=== PATIENT | female | born 1935 | race Caucasian/White ===

== ENCOUNTER → 2018-01-15 | Outpatient (CLI) | payer MEDICARE, OTHER ==
[~2018-01-15] MED LIST: ASA81 MG PO; CHOLESTEROL; FLAGYL500 MG PO; IOPAMIDOL 370 MG/ML 200 ML INFUS..BTL INJ ONE; LEVAQUIN500 MG PO; LOVASTATIN20 MG PO; SODIUM CHLORIDE 0.9% 100 ML 100 ML ONE; SYMBICORT 80-10.2 GM INH; VICODIN 5-5001 EACH PO; Z.0.SYNTHROID25 MCG PO
[2018-01-15 15:34] LABS: BASOPHILS # (AUTO) 0.1 (0.0-0.1); BASOPHILS % 0.6 % (0.0-1.0); EOSINOPHILS # (AUTO) 0.1 (0.0-0.4); EOSINOPHILS % 0.6 % (0.0-6.0); HEMATOCRIT 42.5 % (34.2-44.1); HEMOGLOBIN 14.4 g/dL (12.0-16.0); LYMPHOCYTES # (AUTO) 2.6 (1.0-3.2); LYMPHOCYTES % 28.8 % (18.0-39.1); MEAN CORPUSCULAR HEMOGLOBIN 31.9 pg (28-32); MEAN CORPUSCULAR HGB CONC 33.9 g/dL (31-35); MONOCYTES # (AUTO) 0.7 (0.2-0.8); MONOCYTES % 8.1 % (4.4-11.3); NEUTROPHILS # (AUTO) 5.4 (2.1-6.9); PLATELET COUNT 278 x10e3/uL (140-360); RED BLOOD COUNT 4.52 x10e6/uL (3.6-5.1); RED CELL DISTRIBUTION WIDTH 13.3 % (11.7-14.4)
[2018-01-15 15:58] LABS: ALANINE AMINOTRANSFERASE 14 IU/L (0-55); ALBUMIN 3.8 g/dL (3.5-5.0); ALBUMIN/GLOBULIN RATIO 1.3 (0.8-2.0); ALKALINE PHOSPHATASE 49 IU/L (40-150); BLOOD UREA NITROGEN 14 mg/dL (7-26); BUN/CREATININE RATIO 16 (6-25); CALCIUM 8.9 mg/dL (8.4-10.2); CARBON DIOXIDE 26 mmol/L (22-29); CHLORIDE 105 mmol/L (98-107); CHOL/HDL RATIO 3.2 (3.0-3.6); CHOLESTEROL 168 MD/DL (0-199); CREATININE, SERUM 0.86 mg/dL (0.57-1.11); EST GLOMERULAR FILTRATION RATE > 60 ML/MIN (60-); GLUCOSE 96 mg/dL (74-118); HDL CHOLESTEROL 53 MG/DL (40-60); LDL CHOLESTEROL 86 MG/DL (60-130); SODIUM 140 mmol/L (136-145); TRIGLYCERIDES 145 MG/DL (0-149)
--- NOTE | 2018-01-16 09:58 | Diagnostic Imaging Report ---
PROCEDURE:CTA ABD/PELVIS WITH CONTRAST COMPARISON:[facility], CT, CTA ABD/PEL W, 08/07/2015, 11:11. INDICATIONS:ABDOMINAL AORTIC ANUERYSM TECHNIQUE: Multi-detector CT technology with Dose Reduction was employed. Images were obtained after the administration of 100 cc of Isovue-370 intravenously. For optimization of anatomic evaluation, multiplanar and volume rendering reconstructions were performed. Advanced 3-D off-line postprocessing were performed on a dedicated stand-alone workstation under the direct supervision of the interpreting physician. DLP: 343.02 mGy-cm FINDINGS: Aortic Measurements at the level of the: Diaphragmatic hiatus: 2.98 cm Celiac axis: 3.08 cm Superior Mesenteric Artery: 2.44 cm Renal Arteries: 2.03 cm Above the iliac bifurcation: 2.23 cm No change in the degree of mural thrombus within the lower thoracic and upper abdominal aorta. Fusiform infrarenal aneurysm has a maximal dimension of 4.5 cm (compared to 4.2 cm previously). Evidence of some degree of dissection involving the distal aspect of the aneurysm is noted with two adjacent levels of linear calcification. This is new compared to the prior study. The right common iliac artery measures 1.23 cm. Left common iliac artery measures 0.92 cm. The right common femoral artery measures 0.81 cm and the left common femoral artery measures 0.87 cm. The celiac, superior mesenteric, inferior mesenteric and renal arteries are patent with minimal atherosclerotic disease, without significant narrowing. Abdominal and Pelvic soft-tissues and organs: Lung bases: Unchanged mild emphysematous findings. Liver: Unchanged Biliary: Status post cholecystectomy Spleen: Unremarkable Pancreas: No mass Adrenal Glands: Unchanged left adrenal nodule Kidneys: Unchanged GI: Diverticulosis Peritoneum/Retroperitoneum: No adenopathy or fluid Reproductive organs: Absent uterus and adnexal structures Musculoskeletal: Degenerative changes of the spine with disc space narrowing at L2-L3 and L5-S1. CONCLUSION: 1. Slight interval enlargement of the infrarenal abdominal aortic aneurysm now with a maximal measurement of 4.5 cm. 2. 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 3. Unchanged appearance of a left adrenal nodule. David Romeo D.O. Dictated by: David Romeo D.O. on 01/16/2018 at 10:06 Electronically approved by: David Romeo D.O. on 01/16/2018 at 10:06
== END ==
LOC: CT 14:47
PROVIDERS: ATTEND Internal Medicine Cardiovascular Disease
DX: I71.4 Abdominal aortic aneurysm, without rupture (principal)
CPT/HCPCS: 36415; 74174; 80053; 80061; 85025; Q9967

== ENCOUNTER 2020-07-20 18:52 | Inpatient (IN) | payer MEDICARE, OTHER ==
[~2020-07-20] VITALS: Ht 167.6 cm; Wt 53.5 kg
[~2020-07-20 18:52] MED LIST changes: -IOPAMIDOL 370 MG/ML 200 ML INFUS..BTL INJ ONE; -SODIUM CHLORIDE 0.9% 100 ML 100 ML ONE
[2020-07-20 20:11] LABS: BASOPHILS # (AUTO) 0.1 (0.0-0.1); BASOPHILS % 0.3 % (0.0-1.0); EOSINOPHILS # (AUTO) 0.1 (0.0-0.4); EOSINOPHILS % 0.3 % (0.0-6.0); HEMATOCRIT 41.7 % (34.2-44.1); HEMOGLOBIN 13.3 g/dL (12.0-16.0); LYMPHOCYTES # (AUTO) 1.5 (1.0-3.2); LYMPHOCYTES % 5.5 % (18.0-39.1); MEAN CORPUSCULAR HEMOGLOBIN 30.2 pg (28-32); MEAN CORPUSCULAR HGB CONC 31.9 g/dL (31-35); MEAN CORPUSCULAR VOLUME 94.8 fL (81-99); MONOCYTES # (AUTO) 1.8 (0.2-0.8); MONOCYTES % 6.6 % (4.4-11.3); NEUTROPHILS # (AUTO) 23.7 (2.1-6.9); NEUTROPHILS % 86.4 % (38.7-80.0); PLATELET COUNT 263 x10e3/uL (140-360); RED CELL DISTRIBUTION WIDTH 14.2 % (11.7-14.4)
[2020-07-20] MEDS ORDERED: DEXTROSE 5% IV STA (20:17)
[2020-07-20] MEDS ORDERED: VANCOMYCIN 1GM/NS 250 ML 250 ML IV STA (20:17)
[2020-07-20] MEDS ORDERED: CEFEPIME IV STA (20:17)
[2020-07-20] MEDS ORDERED: SODIUM CHLORIDE IV STA (20:17)
[2020-07-20 20:29] LABS: ALANINE AMINOTRANSFERASE 17 IU/L (0-55); ALBUMIN 3.2 g/dL (3.5-5.0); ALBUMIN/GLOBULIN RATIO 0.9 (0.8-2.0); ALKALINE PHOSPHATASE 59 IU/L (40-150); ANION GAP 15.2 mmol/L (8-16); BLOOD UREA NITROGEN 23 mg/dL (7-26); BUN/CREATININE RATIO 26 (6-25); CALCIUM 9.5 mg/dL (8.4-10.2); CARBON DIOXIDE 29 mmol/L (22-29); CHLORIDE 101 mmol/L (98-107); CREATINE KINASE 24 IU/L (29-168); CREATININE, SERUM 0.87 mg/dL (0.57-1.11); EST GLOMERULAR FILTRATION RATE > 60 ML/MIN (60-); GLUCOSE 126 mg/dL (74-118); POTASSIUM 4.2 mmol/L (3.5-5.1); SODIUM 141 mmol/L (136-145)
[2020-07-20] MEDS ORDERED: SODIUM CHLORIDE 0.9% 50ML 50 ML ONE (21:13)
[2020-07-20] MEDS ORDERED: CEFTRIAXONE SOD 1 GM VIAL ONE (21:13)
[2020-07-20] MEDS ORDERED: HYDROCODONE/APAP 5MG-325MG TAB PO ONE (21:30)
[2020-07-20] MEDS ORDERED: VANCOMYCIN HCL 1GM/NS 250 ML BAG IV SCH (22:30)
[2020-07-20] MEDS ORDERED: CEFTRIAXONE SOD 1 GM/50 ML BAG IV SCH (22:30)
[2020-07-21] MEDS: CEFTRIAXONE SOD 1 GM in SODIUM CHLORIDE 0.9% 50ML 50 ML IV SCH ×2 (02:01→23:37)
[2020-07-21] MEDS: VANCOMYCIN 1GM/NS 250 ML 250 ML IV SCH ×2 (02:01→23:53)
[2020-07-21] MEDS ORDERED: SODIUM CHLORIDE 0.9% 1000ML 1,000 ML IV ONE (05:00)
[2020-07-21 05:41] LABS: BASOPHILS # (AUTO) 0.1 (0.0-0.1); BASOPHILS % 0.3 % (0.0-1.0); EOSINOPHILS # (AUTO) 0.1 (0.0-0.4); EOSINOPHILS % 0.4 % (0.0-6.0); HEMATOCRIT 36.2 % (34.2-44.1); HEMOGLOBIN 11.6 g/dL (12.0-16.0); LYMPHOCYTES # (AUTO) 1.6 (1.0-3.2); LYMPHOCYTES % 8.3 % (18.0-39.1); MEAN CORPUSCULAR HEMOGLOBIN 30.8 pg (28-32); MONOCYTES # (AUTO) 1.2 (0.2-0.8); MONOCYTES % 6.3 % (4.4-11.3); NEUTROPHILS # (AUTO) 16.4 (2.1-6.9); PLATELET COUNT 190 x10e3/uL (140-360); RED BLOOD COUNT 3.77 x10e6/uL (3.6-5.1); RED CELL DISTRIBUTION WIDTH 14.1 % (11.7-14.4)
[2020-07-21] MEDS: ALBUTEROL/IPRATROPIUM 3 ML NEB NEB SCH ×5 (05:50→22:30)
[2020-07-21 06:14] LABS: ALANINE AMINOTRANSFERASE 16 IU/L (0-55); ALBUMIN 2.6 g/dL (3.5-5.0); ALBUMIN/GLOBULIN RATIO 0.8 (0.8-2.0); ALKALINE PHOSPHATASE 54 IU/L (40-150); ANION GAP 10.5 mmol/L (8-16); BLOOD UREA NITROGEN 23 mg/dL (7-26); BUN/CREATININE RATIO 32 (6-25); CALCIUM 8.8 mg/dL (8.4-10.2); CARBON DIOXIDE 32 mmol/L (22-29); CHLORIDE 104 mmol/L (98-107); CREATININE, SERUM 0.73 mg/dL (0.57-1.11); EST GLOMERULAR FILTRATION RATE > 60 ML/MIN (60-); GLUCOSE 95 mg/dL (74-118); POTASSIUM 4.5 mmol/L (3.5-5.1); SODIUM 142 mmol/L (136-145)
[2020-07-21 06:20] LABS: CREATINE KINASE 35 IU/L (29-168)
[2020-07-21 13:55] VITALS: BP 101/61
[2020-07-21 13:59] VITALS: BP 113/76
[2020-07-21] MEDS ORDERED: HYDRALAZINE HCL 20 MG/ML VIAL IV PRN (14:30)
[2020-07-21] MEDS ORDERED: ACETAMINOPHEN 325 MG TAB PO PRN (14:30)
[2020-07-21] MEDS ORDERED: POLYETHYLENE GLYCOL 3350 17 GM PACK PO PRN (14:30)
[2020-07-21] MEDS ORDERED: ONDANSETRON HCL INJ 2MG/ML 2ML 2 MG/ML VIAL IV PRN (14:30)
[2020-07-21] MEDS ORDERED: SODIUM CHLORIDE 0.9% 50ML 50 ML ONE ×2 (15:29→23:41)
[2020-07-21] MEDS ORDERED: IOPAMIDOL 370 MG/ML 200 ML INFUS..BTL INJ ONE (15:29)
[2020-07-21] MEDS ORDERED: NEURONTIN300 MG PO (15:39)
[2020-07-21 15:40] LABS: CREATINE KINASE MB 0.9 ng/mL (0-5.0)
[2020-07-21] MEDS ORDERED: MULTI-VITAMIN1 EACH PO (15:40)
[2020-07-21] MEDS ORDERED: TYLENOL EXTRA500 MG PO (15:41)
[2020-07-21 15:43] VITALS: BP 101/61
[2020-07-21] MEDS ORDERED: ALBUTEROL1.25 MG/3 NEB (15:43)
[2020-07-21] MEDS: DOCUSATE SODIUM 100 MG CAP PO SCH (16:25)
[2020-07-21] MEDS ORDERED: SYMBICORT 16010.2 GM INH (16:59)
[2020-07-21] MEDS: GABAPENTIN 300 MG CAP PO SCH (17:39)
[2020-07-21 17:52] LABS: CLARITY,URINE SL CLOUDY (CLEAR); COLOR,URINE YELLOW (YELLOW); KETONES,URINE NEGATIVE (NEGATIVE); LEUKOCYTE ESTERASE ,URINE TRACE (NEGATIVE); NITRITE,URINE NEGATIVE (NEGATIVE); PROTEIN,URINE DIPSTICK NEGATIVE (NEGATIVE); URINE UROBILINOGEN 0.2 mg/dL (0.2 - 1)
[2020-07-21 18:05] LABS: BACTERIA,URINE RARE /HPF; EPITHELIAL CELLS,URINE FEW /LPF; RBC,URINE 0-5 /HPF (0-5)
[2020-07-21] MEDS: BUDESONIDE/FORMOTEROL FUMARATE 80/4.5MCG 6.9 GM INH AEROSOL IH SCH (18:40)
[2020-07-21 20:18] VITALS: BP 95/70
[2020-07-21 20:24] LABS: CREATINE KINASE MB 0.9 ng/mL (0-5.0)
[2020-07-21 21:00] VITALS: BP 95/70
[2020-07-21] MEDS ORDERED: SIMVASTATIN 20 MG TAB PO SCH (21:00)
[2020-07-21] MEDS ORDERED: NON-FORMULARY MEDICATION (Lovastatin 20 MG) PO SCH (21:00)
[2020-07-21] MEDS ORDERED: ASPIRIN 81 MG ENTERIC COATED PO SCH (21:00)
[2020-07-21] MEDS ORDERED: TEMAZEPAM 7.5 MG CAP PO PRN (21:00)
[2020-07-22] MEDS: ALBUTEROL/IPRATROPIUM 3 ML NEB NEB SCH ×3 (02:05→11:25)
[2020-07-22 04:33] VITALS: BP 95/54
[2020-07-22 04:51] LABS: BASOPHILS % 0.2 % (0.0-1.0); EOSINOPHILS # (AUTO) 0.1 (0.0-0.4); EOSINOPHILS % 0.7 % (0.0-6.0); HEMATOCRIT 31.6 % (34.2-44.1); HEMOGLOBIN 10.2 g/dL (12.0-16.0); LYMPHOCYTES # (AUTO) 1.3 (1.0-3.2); LYMPHOCYTES % 15.7 % (18.0-39.1); MEAN CORPUSCULAR HEMOGLOBIN 30.9 pg (28-32); MEAN CORPUSCULAR HGB CONC 32.3 g/dL (31-35); MEAN CORPUSCULAR VOLUME 95.8 fL (81-99); MONOCYTES # (AUTO) 0.7 (0.2-0.8); MONOCYTES % 7.9 % (4.4-11.3); NEUTROPHILS # (AUTO) 6.3 (2.1-6.9); NEUTROPHILS % 74.9 % (38.7-80.0); PLATELET COUNT 203 x10e3/uL (140-360); RED CELL DISTRIBUTION WIDTH 13.8 % (11.7-14.4)
[2020-07-22 05:17] LABS: ANION GAP 10.6 mmol/L (8-16); BLOOD UREA NITROGEN 17 mg/dL (7-26); BUN/CREATININE RATIO 24 (6-25); CALCIUM 8.2 mg/dL (8.4-10.2); CARBON DIOXIDE 30 mmol/L (22-29); CHLORIDE 105 mmol/L (98-107); EST GLOMERULAR FILTRATION RATE > 60 ML/MIN (60-); GLUCOSE 82 mg/dL (74-118); MAGNESIUM 1.7 MG/DL (1.3-2.1); PHOSPHORUS 2.5 MG/DL (2.3-4.7); POTASSIUM 3.6 mmol/L (3.5-5.1); SODIUM 142 mmol/L (136-145)
[2020-07-22 05:41] LABS: THYROID STIMULATING HORMONE 3.871 uIU/mL (0.350-4.940)
[2020-07-22] MEDS ORDERED: LEVOTHYROXINE SODIUM 88 MCG TAB PO SCH (06:00)
[2020-07-22 07:10] VITALS: BP 95/62
[2020-07-22 07:30] VITALS: BP 95/62
[2020-07-22] MEDS: BUDESONIDE/FORMOTEROL FUMARATE 80/4.5MCG 6.9 GM INH AEROSOL IH SCH (07:50)
[2020-07-22] MEDS: GABAPENTIN 300 MG CAP PO SCH (08:12)
[2020-07-22] MEDS: DOCUSATE SODIUM 100 MG CAP PO SCH (08:12)
[2020-07-22] MEDS ORDERED: MULTIVITAMINS/MINERALS TAB PO SCH (09:00)
[2020-07-22] MEDS ORDERED: FAMOTIDINE 20 MG TAB PO SCH (09:00)
[2020-07-22] MEDS ORDERED: CEFDINIR300 MG PO (09:49)
[2020-07-22] MEDS ORDERED: ZITHROMAX500 MG PO (09:49)
[2020-07-22] MEDS ORDERED: ONDANSETRON HCL 4 MG ORAL DISINTEGRATING TAB PO PRN (10:30)
[2020-07-22] MEDS: CEFTRIAXONE SOD 1 GM in SODIUM CHLORIDE 0.9% 50ML 50 ML IV SCH (12:18)
== END 2020-07-22 15:30 | disposition home health service (06) | DRG 871 ==
LOC: ER 20:07 → ERHOLD 22:43 → IMCU 07-21 13:41
PROVIDERS: ADMIT Internal Medicine; ATTEND Internal Medicine
DX: A41.9 Sepsis, unspecified organism (principal); J18.9 Pneumonia, unspecified organism; J96.21 Acute and chronic respiratory failure with hypoxia; E03.9 Hypothyroidism, unspecified; J44.9 Chronic obstructive pulmonary disease, unspecified; F17.210 Nicotine dependence, cigarettes, uncomplicated; R13.10 Dysphagia, unspecified; Z20.822 Contact with and (suspected) exposure to COVID-19; Z85.118 Personal history of other malignant neoplasm of bronchus and lung; Z99.81 Dependence on supplemental oxygen; Z85.038 Personal history of other malignant neoplasm of large intestine; Z88.0 Allergy status to penicillin; Z91.010 Allergy to peanuts; Z80.9 Family history of malignant neoplasm, unspecified
CPT/HCPCS: 36415; 71045; 71260; 74230; 80048; 80053; 81001; 82550; 82553; 83605; 83735; 83880; 84100; 84443; 84484; 85025; 87040; 87086; 93005; 93306; 94640; 94664; 99284; J0692; J0696; J3370; J7030; Q9967; U0002

== ENCOUNTER 2022-01-06 19:32 | Inpatient (IN) | payer MEDICARE ==
[~2022-01-06] VITALS: Ht 167.6 cm; Wt 53.5 kg
[~2022-01-06 19:32] MED LIST changes: +ALBUTEROL1.25 MG/3 NEB; +CEFDINIR300 MG PO; +MULTI-VITAMIN1 EACH PO; +NEURONTIN300 MG PO; +SYMBICORT 16010.2 GM INH; +TYLENOL EXTRA500 MG PO; +ZITHROMAX500 MG PO
[2022-01-06 20:03] LABS: BASOPHILS # (AUTO) 0.1 (0.0-0.1); BASOPHILS % 0.3 % (0.0-1.0); EOSINOPHILS % 0.2 % (0.0-6.0); HEMATOCRIT 40.5 % (34.2-44.1); HEMOGLOBIN 12.8 g/dL (12.0-16.0); LYMPHOCYTES # (AUTO) 1.4 (1.0-3.2); MEAN CORPUSCULAR HEMOGLOBIN 29.2 pg (28-32); MEAN CORPUSCULAR HGB CONC 31.6 g/dL (31-35); MEAN CORPUSCULAR VOLUME 92.3 fL (81-99); MONOCYTES # (AUTO) 1.2 (0.2-0.8); MONOCYTES % 6.4 % (4.4-11.3); NEUTROPHILS # (AUTO) 15.3 (2.1-6.9); NEUTROPHILS % 84.5 % (38.7-80.0); PLATELET COUNT 327 x10e3/uL (140-360); RED BLOOD COUNT 4.39 x10e6/uL (3.6-5.1); RED CELL DISTRIBUTION WIDTH 15.3 % (11.7-14.4)
[2022-01-06 20:19] LABS: ALANINE AMINOTRANSFERASE 10 IU/L (0-55); ALBUMIN 3.5 g/dL (3.5-5.0); ALBUMIN/GLOBULIN RATIO 0.9 (0.8-2.0); ALKALINE PHOSPHATASE 70 IU/L (40-150); ANION GAP 14.5 mmol/L (8-16); BLOOD UREA NITROGEN 10 mg/dL (7-26); BUN/CREATININE RATIO 12 (6-25); CARBON DIOXIDE 28 mmol/L (22-29); CHLORIDE 102 mmol/L (98-107); CREATINE KINASE 69 IU/L (29-168); CREATININE, SERUM 0.84 mg/dL (0.57-1.11); GLUCOSE 153 mg/dL (74-118); POTASSIUM 3.5 mmol/L (3.5-5.1); SODIUM 141 mmol/L (136-145)
[2022-01-06] MEDS ORDERED: ALBUTEROL SULF 0.083% NEB SOLN 3 ML NEB NEB STA (20:20)
[2022-01-06 20:22] LABS: B-TYPE NATRIURETIC PEPTIDE2 97.2 pg/mL (0-100)
[2022-01-06] MEDS ORDERED: METHYLPREDNISOLONE SOD SUCC 125 MG/2ML VIAL IV ONE (20:30)
[2022-01-06] MEDS ORDERED: SODIUM CHLORIDE 0.9% 1000ML 1,000 ML IV ONE (20:30)
[2022-01-06] MEDS ORDERED: IPRATROPIUM BROMIDE 0.02% 2.5 ML NEB NEB ONE (20:30)
[2022-01-06] MEDS ORDERED: ALBUTEROL SULF 0.083% NEB SOLN 3 ML NEB NEB SCH (21:15)
[2022-01-06] MEDS ORDERED: ONDANSETRON HCL INJ 2MG/ML 2ML 2 MG/ML VIAL IV PRN (23:00)
[2022-01-06] MEDS: NIRMATRELVIR/RITONAVIR 1 EACH BOX PO SCH (23:11)
[2022-01-06] MEDS: ALBUTEROL/IPRATROPIUM 3 ML NEB NEB SCH (23:55)
[2022-01-07] VITALS (10 sets, daily range): BP systolic 86–106; BP diastolic 59–87
[2022-01-07] MEDS ORDERED: IPRATROPIUM BROMIDE 0.02% 2.5 ML NEB NEB SCH
[2022-01-07] MEDS: METHYLPREDNISOLONE SOD SUCC 40 MG/ML VIAL 1ML IV SCH ×3 (00:02→21:35)
[2022-01-07] MEDS ORDERED: TRELEGY ELLIPT1 EACH IH (01:02)
[2022-01-07] MEDS ORDERED: LEVOTHYROXINE75 MCG PO (01:02)
[2022-01-07] MEDS ORDERED: ALBUTEROL1.25 MG/3 IH (01:02)
[2022-01-07] MEDS: ALBUTEROL/IPRATROPIUM 3 ML NEB NEB SCH ×6 (02:46→23:30)
[2022-01-07 06:38] LABS: CREATINE KINASE MB 1.8 ng/mL (0-5.0)
[2022-01-07] MEDS ORDERED: IOPAMIDOL 370 MG/ML 100 ML INFUS..BTL INJ ONE ×2 (09:31→15:14)
[2022-01-07] MEDS: LEVOTHYROXINE SODIUM 75 MCG TAB PO SCH (09:40)
[2022-01-07] MEDS: BUDESONIDE/FORMOTEROL FUMARATE 80/4.5MCG 6.9 GM INH AEROSOL IH SCH ×3 (10:51→23:52)
[2022-01-07] MEDS: NIRMATRELVIR/RITONAVIR 1 EACH BOX PO SCH ×2 (14:03→21:36)
[2022-01-07 14:45] LABS: CREATINE KINASE 48 IU/L (29-168)
[2022-01-07] MEDS ORDERED: NICOTINE 14 MG/EA PATCH TOP SCH (21:00)
[2022-01-07] MEDS ORDERED: SODIUM CHLORIDE 0.9% 250ML 250 ML ONE (22:47)
[2022-01-08] VITALS: BP_SYST 93; BP_SYST 96; BP_DIAS 57; BP_DIAS 71
[2022-01-08] MEDS ORDERED: DIPHENHYDRAMINE HCL 25 MG CAP PO PRN (00:15)
[2022-01-08] MEDS ORDERED: ACETAMINOPHEN 325 MG TAB PO PRN (00:15)
[2022-01-08] MEDS: ALBUTEROL/IPRATROPIUM 3 ML NEB NEB SCH ×3 (03:40→10:35)
[2022-01-08 04:00] VITALS: BP 95/51
[2022-01-08] MEDS: LEVOTHYROXINE SODIUM 75 MCG TAB PO SCH (05:26)
[2022-01-08 08:30] VITALS: BP 95/51
[2022-01-08 08:38] LABS: BASOPHILS % 0.2 % (0.0-1.0); EOSINOPHILS % 0.1 % (0.0-6.0); HEMATOCRIT 31.1 % (34.2-44.1); HEMOGLOBIN 10.2 g/dL (12.0-16.0); LYMPHOCYTES # (AUTO) 0.8 (1.0-3.2); LYMPHOCYTES % 4.9 % (18.0-39.1); MEAN CORPUSCULAR HEMOGLOBIN 28.9 pg (28-32); MEAN CORPUSCULAR HGB CONC 32.8 g/dL (31-35); MEAN CORPUSCULAR VOLUME 88.1 fL (81-99); MONOCYTES # (AUTO) 0.2 (0.2-0.8); MONOCYTES % 1.4 % (4.4-11.3); NEUTROPHILS # (AUTO) 15.4 (2.1-6.9); NEUTROPHILS % 92.7 % (38.7-80.0); PLATELET COUNT 298 x10e3/uL (140-360); RED BLOOD COUNT 3.53 x10e6/uL (3.6-5.1); RED CELL DISTRIBUTION WIDTH 15.7 % (11.7-14.4)
[2022-01-08 08:44] VITALS: BP 97/59
[2022-01-08 08:58] LABS: ANION GAP 17.6 mmol/L (8-16); CALCIUM 8.8 mg/dL (8.4-10.2); CREATININE, SERUM 0.88 mg/dL (0.57-1.11); POTASSIUM 4.6 mmol/L (3.5-5.1)
[2022-01-08] MEDS ORDERED: FAMOTIDINE 20 MG TAB PO SCH (09:00)
[2022-01-08] MEDS ORDERED: PAXLOVID 300-11 EACH PO (09:35)
[2022-01-08] MEDS ORDERED: PREDNISONE10 MG PO (09:38)
[2022-01-08] MEDS ORDERED: CEFDINIR300 MG PO (09:38)
[2022-01-08] MEDS: NIRMATRELVIR/RITONAVIR 1 EACH BOX PO SCH (09:39)
[2022-01-08] MEDS: METHYLPREDNISOLONE SOD SUCC 40 MG/ML VIAL 1ML IV SCH (09:40)
[2022-01-08 11:42] VITALS: BP 108/65
== END 2022-01-08 13:02 | disposition home or self-care (01) | DRG 178 ==
LOC: ER 19:40 → ERHOLD 21:06 → MED/SURG2 23:40
PROVIDERS: ADMIT Internal Medicine; ATTEND Internal Medicine
PROC: 8E0ZXY6 Isolation (ICD-10-PCS; principal; 2022-01-06)
DX: U07.1 COVID-19 (principal); J44.1 Chronic obstructive pulmonary disease with (acute) exacerbation; J22 Unspecified acute lower respiratory infection; Z85.038 Personal history of other malignant neoplasm of large intestine; Z85.118 Personal history of other malignant neoplasm of bronchus and lung; E03.9 Hypothyroidism, unspecified; Z88.0 Allergy status to penicillin; Z99.81 Dependence on supplemental oxygen; F17.210 Nicotine dependence, cigarettes, uncomplicated; Z91.018 Allergy to other foods; R09.02 Hypoxemia
CPT/HCPCS: 36415; 71045; 71260; 80048; 80053; 82550; 82553; 83605; 83880; 84484; 85025; 87040; 93005; 94640; 94760; 94799; 99284; J0456; J0696; J2920; J2930; J7030; J7050; Q9967

== ENCOUNTER 2022-06-26 00:31 | Inpatient (IN) | payer MEDICARE ==
[~2022-06-26] VITALS: Ht 167.6 cm; Wt 53.5 kg
[2022-06-26] VITALS (7 sets, daily range): BP systolic 91–120; BP diastolic 51–70
[~2022-06-26 00:31] MED LIST changes: +ALBUTEROL1.25 MG/3 IH; +LEVOTHYROXINE75 MCG PO; +PAXLOVID 300-11 EACH PO; +PREDNISONE10 MG PO; +TAMIFLU75 MG PO; +TRELEGY ELLIPT1 EACH IH
[2022-06-26] MEDS ORDERED: ALBUTEROL SULF 0.083% NEB SOLN 3 ML NEB NEB STA (00:37)
[2022-06-26] MEDS ORDERED: IPRATROPIUM BROMIDE 0.02% 2.5 ML NEB NEB ONE (00:45)
[2022-06-26] MEDS ORDERED: METHYLPREDNISOLONE SOD SUCC 125 MG/2ML VIAL IV ONE (00:45)
[2022-06-26 00:47] LABS: BASOPHILS % 0.5 % (0.0-1.0); EOSINOPHILS # (AUTO) 0.1 (0.0-0.4); EOSINOPHILS % 0.8 % (0.0-6.0); HEMATOCRIT 37.2 % (34.2-44.1); HEMOGLOBIN 11.2 g/dL (12.0-16.0); LYMPHOCYTES # (AUTO) 2.7 (1.0-3.2); LYMPHOCYTES % 32.2 % (18.0-39.1); MEAN CORPUSCULAR HEMOGLOBIN 26.7 pg (28-32); MEAN CORPUSCULAR HGB CONC 30.1 g/dL (31-35); MEAN CORPUSCULAR VOLUME 88.8 fL (81-99); MONOCYTES % 11.4 % (4.4-11.3); NEUTROPHILS # (AUTO) 4.6 (2.1-6.9); NEUTROPHILS % 54.9 % (38.7-80.0); PLATELET COUNT 239 x10e3/uL (140-360); RED BLOOD COUNT 4.19 x10e6/uL (3.6-5.1); RED CELL DISTRIBUTION WIDTH 15.5 % (11.7-14.4)
[2022-06-26] MEDS ORDERED: METHYLPREDNISOLONE SOD SUCC 125 MG/2ML VIAL ONE (00:53)
[2022-06-26] MEDS ORDERED: CEFTRIAXONE 1 GM VIAL ONE (00:54)
[2022-06-26] MEDS ORDERED: ALBUTEROL SULF 0.083% NEB SOLN 3 ML NEB ONE ×2 (00:58→06:53)
[2022-06-26 01:08] LABS: ALBUMIN 3.8 g/dL (3.5-5.0); ANION GAP 14.4 mmol/L (8-16); CREATININE, SERUM 0.82 mg/dL (0.57-1.11); POTASSIUM 3.4 mmol/L (3.5-5.1)
[2022-06-26 01:10] LABS: CREATINE KINASE MB 2.4 ng/mL (0-5.0)
[2022-06-26 01:11] LABS: B-TYPE NATRIURETIC PEPTIDE2 99.5 pg/mL (0-100)
[2022-06-26] MEDS ORDERED: SODIUM CHLORIDE FLUSH 10 ML SYR INJ PRN (02:00)
[2022-06-26] MEDS ORDERED: ALBUTEROL/IPRATROPIUM 3 ML NEB NEB SCH (03:00)
[2022-06-26 03:22] LABS: ABG HCO3 29 mmol/L (22-26); ABG PCO2 50 mmHg (35-45); ABG PH 7.37 (7.35-7.45); ABG PO2 66 mmHg (80-105); ABG TCO2 30
[2022-06-26] MEDS ORDERED: METHYLPREDNISOLONE SOD SUCC 40 MG/ML VIAL 1ML IV SCH ×2 (06:00→09:45)
[2022-06-26] MEDS ORDERED: IPRATROPIUM BROMIDE 0.02% 2.5 ML NEB ONE (06:53)
[2022-06-26] MEDS ORDERED: ONDANSETRON HCL INJ 2MG/ML 2ML 2 MG/ML VIAL IV PRN (09:45)
[2022-06-26] MEDS ORDERED: ACETAMINOPHEN 325 MG TAB PO PRN (09:45)
[2022-06-26 10:12] LABS: CREATINE KINASE MB 2.6 ng/mL (0-5.0)
[2022-06-26] MEDS ORDERED: POTASSIUM BICARBONATE/CIT AC 20 MEQ TABLET.EFF PO ONE (10:30)
[2022-06-26] MEDS: IPRATROPIUM BROMIDE 0.02% 2.5 ML NEB NEB SCH ×4 (11:00→23:02)
[2022-06-26] MEDS: ALBUTEROL SULF 0.083% NEB SOLN 3 ML NEB NEB SCH ×4 (11:00→23:02)
[2022-06-26] MEDS: ENOXAPARIN 30 MG/0.3 ML SYR SC SCH (16:41)
[2022-06-26] MEDS: SIMVASTATIN 20 MG TAB PO SCH (20:29)
[2022-06-26] MEDS: ASPIRIN 81 MG ENTERIC COATED PO SCH (20:29)
[2022-06-26] MEDS: METHYLPREDNISOLONE SOD SUCC 40 MG/ML VIAL 1ML IV SCH (20:30)
[2022-06-26] MEDS: HYDROCODONE/APAP 5MG-325MG TAB PO PRN (20:30)
[2022-06-27] VITALS (9 sets, daily range): BP systolic 86–125; BP diastolic 50–75
[2022-06-27] MEDS: IPRATROPIUM BROMIDE 0.02% 2.5 ML NEB NEB SCH ×6 (02:35→23:15)
[2022-06-27] MEDS: ALBUTEROL SULF 0.083% NEB SOLN 3 ML NEB NEB SCH ×6 (02:35→23:15)
[2022-06-27 05:15] LABS: BASOPHILS % 0.1 % (0.0-1.0); HEMATOCRIT 30.6 % (34.2-44.1); HEMOGLOBIN 9.4 g/dL (12.0-16.0); LYMPHOCYTES # (AUTO) 0.8 (1.0-3.2); LYMPHOCYTES % 9.9 % (18.0-39.1); MEAN CORPUSCULAR HGB CONC 30.7 g/dL (31-35); MEAN CORPUSCULAR VOLUME 87.9 fL (81-99); MONOCYTES # (AUTO) 0.5 (0.2-0.8); MONOCYTES % 5.6 % (4.4-11.3); NEUTROPHILS # (AUTO) 6.8 (2.1-6.9); PLATELET COUNT 220 x10e3/uL (140-360); RED BLOOD COUNT 3.48 x10e6/uL (3.6-5.1); RED CELL DISTRIBUTION WIDTH 15.4 % (11.7-14.4)
[2022-06-27 05:34] LABS: ANION GAP 13.2 mmol/L (8-16); CALCIUM 8.3 mg/dL (8.4-10.2); CREATININE, SERUM 0.92 mg/dL (0.57-1.11); POTASSIUM 4.2 mmol/L (3.5-5.1)
[2022-06-27] MEDS: BUDESONIDE/FORMOTEROL FUMARATE 80/4.5MCG 6.9 GM INH AEROSOL IH SCH (06:00)
[2022-06-27 06:01] LABS: CREATINE KINASE MB 2.9 ng/mL (0-5.0)
[2022-06-27] MEDS: METHYLPREDNISOLONE SOD SUCC 40 MG/ML VIAL 1ML IV SCH ×2 (08:35→21:02)
[2022-06-27] MEDS: NICOTINE 14 MG/EA PATCH TOP SCH (08:35)
[2022-06-27] MEDS: MULTIVITAMINS/MINERALS TAB PO SCH (08:35)
[2022-06-27] MEDS: LEVOTHYROXINE SODIUM 75 MCG TAB PO SCH (08:35)
[2022-06-27] MEDS ORDERED: ONDANSETRON HCL 4 MG ORAL DISINTEGRATING TAB PO PRN (13:00)
[2022-06-27] MEDS: ENOXAPARIN 30 MG/0.3 ML SYR SC SCH (17:30)
[2022-06-27] MEDS: ASPIRIN 81 MG ENTERIC COATED PO SCH (21:01)
[2022-06-27] MEDS: SIMVASTATIN 20 MG TAB PO SCH (21:01)
[2022-06-27] MEDS: HYDROCODONE/APAP 5MG-325MG TAB PO PRN (21:30)
[2022-06-28] MEDS: IPRATROPIUM BROMIDE 0.02% 2.5 ML NEB NEB SCH ×4 (02:55→14:30)
[2022-06-28] MEDS: ALBUTEROL SULF 0.083% NEB SOLN 3 ML NEB NEB SCH ×4 (02:55→14:30)
[2022-06-28 05:37] VITALS: BP 119/88
[2022-06-28 05:47] LABS: BASOPHILS % 0.1 % (0.0-1.0); HEMATOCRIT 33.2 % (34.2-44.1); HEMOGLOBIN 10.1 g/dL (12.0-16.0); LYMPHOCYTES # (AUTO) 0.9 (1.0-3.2); LYMPHOCYTES % 9.4 % (18.0-39.1); MEAN CORPUSCULAR HGB CONC 30.4 g/dL (31-35); MEAN CORPUSCULAR VOLUME 88.8 fL (81-99); MONOCYTES # (AUTO) 0.2 (0.2-0.8); MONOCYTES % 1.9 % (4.4-11.3); NEUTROPHILS # (AUTO) 8.2 (2.1-6.9); NEUTROPHILS % 88.3 % (38.7-80.0); PLATELET COUNT 274 x10e3/uL (140-360); RED BLOOD COUNT 3.74 x10e6/uL (3.6-5.1); RED CELL DISTRIBUTION WIDTH 15.4 % (11.7-14.4)
[2022-06-28] MEDS: BUDESONIDE/FORMOTEROL FUMARATE 80/4.5MCG 6.9 GM INH AEROSOL IH SCH (06:00)
[2022-06-28 06:18] LABS: ANION GAP 12.1 mmol/L (8-16); CALCIUM 8.9 mg/dL (8.4-10.2); CREATININE, SERUM 0.84 mg/dL (0.57-1.11); POTASSIUM 5.1 mmol/L (3.5-5.1)
[2022-06-28 07:33] VITALS: BP 122/87
[2022-06-28] MEDS: MULTIVITAMINS/MINERALS TAB PO SCH (08:08)
[2022-06-28] MEDS: LEVOTHYROXINE SODIUM 75 MCG TAB PO SCH (08:08)
[2022-06-28] MEDS: METHYLPREDNISOLONE SOD SUCC 40 MG/ML VIAL 1ML IV SCH (08:08)
[2022-06-28] MEDS: NICOTINE 14 MG/EA PATCH TOP SCH (08:08)
[2022-06-28 09:24] VITALS: BP 122/87
[2022-06-28 11:20] VITALS: BP 110/52
[2022-06-28] MEDS ORDERED: PREDNISONE20 MG PO (16:06)
[2022-06-28] MEDS ORDERED: ZITHROMAX500 MG PO (16:07)
[2022-06-28] MEDS: ENOXAPARIN 30 MG/0.3 ML SYR SC SCH (17:18)
[2022-06-29] MEDS ORDERED: AZITHROMYCIN 250 MG TAB PO SCH (09:00)
== END 2022-06-28 17:30 | disposition home or self-care (01) | DRG 190 ==
LOC: ER 00:39 → ERHOLD 01:57 → MED/SURG2 04:26 → OBSVTOIN 06-28 09:53
PROVIDERS: ADMIT Internal Medicine; ATTEND Internal Medicine
DX: J44.1 Chronic obstructive pulmonary disease with (acute) exacerbation (principal); J96.21 Acute and chronic respiratory failure with hypoxia; Z68.1 Body mass index [BMI] 19.9 or less, adult; F17.210 Nicotine dependence, cigarettes, uncomplicated; Z99.81 Dependence on supplemental oxygen; E78.00 Pure hypercholesterolemia, unspecified; R07.89 Other chest pain; J44.0 Chronic obstructive pulmonary disease with (acute) lower respiratory infection; J20.9 Acute bronchitis, unspecified; Z85.038 Personal history of other malignant neoplasm of large intestine; Z85.118 Personal history of other malignant neoplasm of bronchus and lung; R62.7 Adult failure to thrive; E03.9 Hypothyroidism, unspecified; E87.6 Hypokalemia
CPT/HCPCS: 36415; 36600; 71045; 80048; 80053; 82550; 82553; 82805; 83605; 83880; 84484; 85025; 87040; 93005; 94640; 94799; 99284; G0378; J0696; J1650; J2920; J2930; J7050

== ENCOUNTER 2022-08-03 13:13 | Inpatient (IN) | payer MEDICARE ==
[~2022-08-03] VITALS: Ht 165.1 cm; Wt 57.2 kg
[~2022-08-03 13:13] MED LIST changes: +PREDNISONE20 MG PO
[2022-08-03 14:34] LABS: BASOPHILS % 0.4 % (0.0-1.0); EOSINOPHILS % 0.1 % (0.0-6.0); HEMATOCRIT 33.5 % (34.2-44.1); HEMOGLOBIN 10.4 g/dL (12.0-16.0); LYMPHOCYTES # (AUTO) 0.8 (1.0-3.2); LYMPHOCYTES % 10.9 % (18.0-39.1); MEAN CORPUSCULAR HEMOGLOBIN 26.5 pg (28-32); MEAN CORPUSCULAR VOLUME 85.5 fL (81-99); MONOCYTES # (AUTO) 1.1 (0.2-0.8); MONOCYTES % 14.3 % (4.4-11.3); NEUTROPHILS # (AUTO) 5.5 (2.1-6.9); NEUTROPHILS % 73.1 % (38.7-80.0); PLATELET COUNT 340 x10e3/uL (140-360); RED BLOOD COUNT 3.92 x10e6/uL (3.6-5.1); RED CELL DISTRIBUTION WIDTH 14.8 % (11.7-14.4)
[2022-08-03 14:46] LABS: LIPASE 30 U/L (8-78)
[2022-08-03 14:48] LABS: ALBUMIN 3.1 g/dL (3.5-5.0); ALBUMIN/GLOBULIN RATIO 0.8 (0.8-2.0); ANION GAP 14.4 mmol/L (8-16); CALCIUM 9.4 mg/dL (8.4-10.2); CREATININE, SERUM 0.8 mg/dL (0.57-1.11); POTASSIUM 4.4 mmol/L (3.5-5.1)
[2022-08-03] MEDS ORDERED: ASPIRIN 81 MG CHEW TAB PO ONE ×2 (16:00)
[2022-08-03 17:45] LABS: CREATINE KINASE 46 IU/L (29-168)
[2022-08-03 18:25] VITALS: BP 123/83
[2022-08-03 20:00] VITALS: BP 119/86
[2022-08-03 20:27] VITALS: BP 119/86
[2022-08-03] MEDS ORDERED: ALBUTEROL SULF 0.083% NEB SOLN 3 ML NEB NEB PRN (21:30)
[2022-08-03] MEDS ORDERED: NON-FORMULARY MEDICATION (Albuterol Sulfate 1 INH) NEB PRN (21:30)
[2022-08-03] MEDS ORDERED: IPRATROPIUM BROMIDE 0.02% 2.5 ML NEB NEB PRN (21:45)
[2022-08-03] MEDS: ACETAMINOPHEN 325 MG TAB PO PRN (22:43)
[2022-08-03] MEDS: MELATONIN 3 MG TAB PO PRN (22:43)
[2022-08-04] VITALS (8 sets, daily range): BP systolic 89–119; BP diastolic 60–86
[2022-08-04] MEDS: LEVOTHYROXINE SODIUM 75 MCG TAB PO SCH (05:33)
[2022-08-04 05:56] LABS: BASOPHILS # (AUTO) 0.1 (0.0-0.1); BASOPHILS % 0.8 % (0.0-1.0); EOSINOPHILS % 0.3 % (0.0-6.0); HEMATOCRIT 30.1 % (34.2-44.1); HEMOGLOBIN 9.2 g/dL (12.0-16.0); LYMPHOCYTES % 13.9 % (18.0-39.1); MEAN CORPUSCULAR HEMOGLOBIN 26.6 pg (28-32); MEAN CORPUSCULAR HGB CONC 30.6 g/dL (31-35); MONOCYTES # (AUTO) 1.2 (0.2-0.8); MONOCYTES % 17.3 % (4.4-11.3); NEUTROPHILS # (AUTO) 4.8 (2.1-6.9); NEUTROPHILS % 66.2 % (38.7-80.0); PLATELET COUNT 313 x10e3/uL (140-360); RED BLOOD COUNT 3.46 x10e6/uL (3.6-5.1); RED CELL DISTRIBUTION WIDTH 14.6 % (11.7-14.4)
[2022-08-04 06:21] LABS: ANION GAP 12.6 mmol/L (8-16); CALCIUM 8.7 mg/dL (8.4-10.2); CREATININE, SERUM 0.74 mg/dL (0.57-1.11); POTASSIUM 3.6 mmol/L (3.5-5.1)
[2022-08-04 06:35] LABS: CREATINE KINASE 39 IU/L (29-168)
[2022-08-04] MEDS ORDERED: BUDESONIDE/FORMOTEROL FUMARATE 80/4.5MCG 6.9 GM INH AEROSOL IH SCH (09:00)
[2022-08-04] MEDS ORDERED: PREDNISONE 20 MG TAB PO SCH (09:00)
[2022-08-04] MEDS ORDERED: ASPIRIN 325 MG TAB PO SCH (09:00)
[2022-08-04] MEDS: MULTIVITAMINS/MINERALS TAB PO SCH (09:29)
[2022-08-04] MEDS: ASPIRIN 81 MG CHEW TAB PO SCH (09:29)
[2022-08-04] MEDS: ACETAMINOPHEN 325 MG TAB PO PRN ×2 (09:35→21:21)
[2022-08-04] MEDS: ALBUTEROL/IPRATROPIUM 3 ML NEB NEB SCH ×3 (10:00→18:00)
[2022-08-04] MEDS: BUDESONIDE/FORMOTEROL FUMARATE 80/4.5MCG 6.9 GM INH AEROSOL IH SCH ×2 (10:00→18:00)
[2022-08-04] MEDS ORDERED: SODIUM CHLORIDE 0.9% 250ML 250 ML ONE (11:34)
[2022-08-04] MEDS: METHYLPREDNISOLONE SOD SUCC 40 MG/ML VIAL 1ML IV SCH ×3 (11:40→21:24)
[2022-08-04 14:40] LABS: CREATINE KINASE 44 IU/L (29-168)
[2022-08-04] MEDS: ALBUTEROL/IPRATROPIUM 3 ML NEB NEB PRN (15:25)
[2022-08-04] MEDS: ENOXAPARIN 30 MG/0.3 ML SYR SC SCH (16:47)
[2022-08-04] MEDS ORDERED: NON-FORMULARY MEDICATION (Lovastatin 20 MG) PO SCH (21:00)
[2022-08-04] MEDS: SIMVASTATIN 20 MG TAB PO SCH (21:22)
[2022-08-05] VITALS (7 sets, daily range): BP systolic 90–121; BP diastolic 65–83
[2022-08-05] MEDS: ALBUTEROL/IPRATROPIUM 3 ML NEB NEB SCH ×4 (00:47→19:47)
[2022-08-05 05:33] LABS: BASOPHILS # (AUTO) 0.1 (0.0-0.1); BASOPHILS % 0.8 % (0.0-1.0); HEMATOCRIT 28.8 % (34.2-44.1); HEMOGLOBIN 9.1 g/dL (12.0-16.0); LYMPHOCYTES # (AUTO) 0.9 (1.0-3.2); LYMPHOCYTES % 14.2 % (18.0-39.1); MEAN CORPUSCULAR HEMOGLOBIN 26.6 pg (28-32); MEAN CORPUSCULAR HGB CONC 31.6 g/dL (31-35); MEAN CORPUSCULAR VOLUME 84.2 fL (81-99); MONOCYTES # (AUTO) 0.1 (0.2-0.8); MONOCYTES % 2.1 % (4.4-11.3); NEUTROPHILS # (AUTO) 4.9 (2.1-6.9); NEUTROPHILS % 74.2 % (38.7-80.0); PLATELET COUNT 329 x10e3/uL (140-360); RED BLOOD COUNT 3.42 x10e6/uL (3.6-5.1); RED CELL DISTRIBUTION WIDTH 14.6 % (11.7-14.4)
[2022-08-05 05:59] LABS: ANION GAP 11.6 mmol/L (8-16); CALCIUM 9.1 mg/dL (8.4-10.2); CREATININE, SERUM 0.84 mg/dL (0.57-1.11); POTASSIUM 4.6 mmol/L (3.5-5.1)
[2022-08-05] MEDS: METHYLPREDNISOLONE SOD SUCC 40 MG/ML VIAL 1ML IV SCH ×3 (06:00→21:01)
[2022-08-05] MEDS: LEVOTHYROXINE SODIUM 75 MCG TAB PO SCH (06:00)
[2022-08-05] MEDS: BUDESONIDE/FORMOTEROL FUMARATE 80/4.5MCG 6.9 GM INH AEROSOL IH SCH ×2 (07:00→19:47)
[2022-08-05] MEDS: ASPIRIN 81 MG CHEW TAB PO SCH (09:35)
[2022-08-05] MEDS: MULTIVITAMINS/MINERALS TAB PO SCH (09:35)
[2022-08-05] MEDS: ENOXAPARIN 30 MG/0.3 ML SYR SC SCH (17:43)
[2022-08-05] MEDS: MELATONIN 3 MG TAB PO PRN (21:01)
[2022-08-05] MEDS: SIMVASTATIN 20 MG TAB PO SCH (21:01)
[2022-08-06] VITALS (7 sets, daily range): BP systolic 95–119; BP diastolic 61–83
[2022-08-06] MEDS: ALBUTEROL/IPRATROPIUM 3 ML NEB NEB SCH ×4 (00:10→19:00)
[2022-08-06] MEDS: LEVOTHYROXINE SODIUM 125 MCG TAB PO SCH (05:31)
[2022-08-06] MEDS: METHYLPREDNISOLONE SOD SUCC 40 MG/ML VIAL 1ML IV SCH ×3 (05:31→20:53)
[2022-08-06] MEDS: BUDESONIDE/FORMOTEROL FUMARATE 80/4.5MCG 6.9 GM INH AEROSOL IH SCH ×2 (07:00→19:00)
[2022-08-06] MEDS: ASPIRIN 81 MG CHEW TAB PO SCH (08:35)
[2022-08-06] MEDS: MULTIVITAMINS/MINERALS TAB PO SCH (08:35)
[2022-08-06] MEDS: ALBUTEROL/IPRATROPIUM 3 ML NEB NEB PRN (09:55)
[2022-08-06] MEDS: ENOXAPARIN 30 MG/0.3 ML SYR SC SCH (16:58)
[2022-08-06] MEDS: SIMVASTATIN 20 MG TAB PO SCH (20:52)
[2022-08-06] MEDS: MELATONIN 3 MG TAB PO PRN (20:52)
[2022-08-06] MEDS: ACETAMINOPHEN 325 MG TAB PO PRN (23:15)
[2022-08-07] VITALS: BP 101/65
[2022-08-07] MEDS: ALBUTEROL/IPRATROPIUM 3 ML NEB NEB SCH ×4 (02:02→19:02)
[2022-08-07] MEDS: METHYLPREDNISOLONE SOD SUCC 40 MG/ML VIAL 1ML IV SCH ×3 (06:06→20:15)
[2022-08-07] MEDS: LEVOTHYROXINE SODIUM 125 MCG TAB PO SCH (06:06)
[2022-08-07] MEDS: BUDESONIDE/FORMOTEROL FUMARATE 80/4.5MCG 6.9 GM INH AEROSOL IH SCH ×2 (07:00→19:00)
[2022-08-07] MEDS ORDERED: MELATONIN 3 MG TAB PO PRN (07:45)
[2022-08-07] MEDS ORDERED: TRIAMCINOLONE ACET 40 MG/ML VIAL IM ONE ×2 (07:45→20:00)
[2022-08-07] MEDS: MULTIVITAMINS/MINERALS TAB PO SCH (08:18)
[2022-08-07] MEDS: ASPIRIN 81 MG CHEW TAB PO SCH (08:18)
[2022-08-07 08:19] VITALS: BP 115/75
[2022-08-07 08:28] VITALS: BP 101/65
[2022-08-07 16:00] VITALS: BP 116/81
[2022-08-07] MEDS: ENOXAPARIN 30 MG/0.3 ML SYR SC SCH (17:00)
[2022-08-07 20:00] VITALS: BP 101/70
[2022-08-07] MEDS: SIMVASTATIN 20 MG TAB PO SCH (20:15)
[2022-08-07] MEDS ORDERED: TRAZODONE HCL 50 MG TAB PO SCH (21:00)
[2022-08-08] VITALS: BP 106/71
[2022-08-08] MEDS: ALBUTEROL/IPRATROPIUM 3 ML NEB NEB SCH ×2 (02:45→06:45)
[2022-08-08 04:00] VITALS: BP 108/76
[2022-08-08] MEDS: LEVOTHYROXINE SODIUM 125 MCG TAB PO SCH (05:54)
[2022-08-08] MEDS: METHYLPREDNISOLONE SOD SUCC 40 MG/ML VIAL 1ML IV SCH ×2 (05:54→14:21)
[2022-08-08] MEDS: BUDESONIDE/FORMOTEROL FUMARATE 80/4.5MCG 6.9 GM INH AEROSOL IH SCH (07:00)
[2022-08-08] MEDS: MULTIVITAMINS/MINERALS TAB PO SCH (08:46)
[2022-08-08] MEDS: ASPIRIN 81 MG CHEW TAB PO SCH (08:46)
[2022-08-08 08:47] VITALS: BP 107/73
[2022-08-08 12:45] VITALS: BP 108/77
[2022-08-08] MEDS: ENOXAPARIN 30 MG/0.3 ML SYR SC SCH (16:50)
== END 2022-08-08 17:00 | disposition home or self-care (01) | DRG 190 ==
LOC: ER 13:18 → ERHOLD 16:05 → MED/SURG 18:12 → OBSVTOIN 08-04 09:06
PROVIDERS: ADMIT Internal Medicine; ATTEND Internal Medicine
DX: J44.1 Chronic obstructive pulmonary disease with (acute) exacerbation (principal); J18.9 Pneumonia, unspecified organism; J96.01 Acute respiratory failure with hypoxia; C18.9 Malignant neoplasm of colon, unspecified; J44.0 Chronic obstructive pulmonary disease with (acute) lower respiratory infection; E03.9 Hypothyroidism, unspecified; F17.210 Nicotine dependence, cigarettes, uncomplicated; E78.5 Hyperlipidemia, unspecified; F41.9 Anxiety disorder, unspecified; Z99.81 Dependence on supplemental oxygen; Z90.49 Acquired absence of other specified parts of digestive tract; Z88.0 Allergy status to penicillin; Z79.82 Long term (current) use of aspirin; Z85.118 Personal history of other malignant neoplasm of bronchus and lung; Z92.21 Personal history of antineoplastic chemotherapy; Z92.3 Personal history of irradiation
CPT/HCPCS: 36415; 70450; 71045; 71250; 80048; 80053; 82550; 82553; 83690; 83880; 84443; 84484; 85025; 93005; 94640; 94799; 99285; G0378; J0696; J1650; J2920; J3301; J7050; J7512